=== PATIENT | male | born 1960 | race Caucasian/White ===

== ENCOUNTER 2017-01-15 08:56 | Emergency (ER) | payer OTHER | END 2017-01-15 09:42 | disposition home or self-care (01) | LOC: ED 08:56 | DX: S70.12XA Contusion of left thigh, initial encounter (principal); S76.912A Strain of unspecified muscles, fascia and tendons at thigh level, left thigh, initial encounter; X58.XXXA Exposure to other specified factors, initial encounter; Y92.810 Car as the place of occurrence of the external cause ==